=== PATIENT | female | born 1985 | race Caucasian/White ===

== ENCOUNTER 2017-02-17 10:10 | Emergency (ER) | payer OTHER ==
[~2017-02-17] VITALS: Ht 160 cm; Wt 58.2 kg
[~2017-02-17 10:10] MED LIST: TYLENOL
[2017-02-17] MEDS ORDERED: IPRATROPIUM BROMIDE 0.5 MG/2.5 ML NEB SOLUTION NEB ONE ×2 (10:15→10:45)
[2017-02-17] MEDS ORDERED: ALBUTEROL SULFATE 2.5 MG/0.5 ML NEB SOLUTION NEB ONE ×2 (10:15)
[2017-02-17] MEDS ORDERED: ALBUTEROL SULFATE 5 MG/ML 20 ML NEB SOLN [BULK] NEB ONE (10:45)
[2017-02-17] MEDS ORDERED: PredniSONE 20 MG TABLET PO ONE (11:30)
[2017-02-17 13:36] VITALS: BP 132/84
== END 2017-02-17 14:00 | disposition home or self-care (01) ==
LOC: EMS 10:11
DX: J45.909 Unspecified asthma, uncomplicated (principal)
CPT/HCPCS: 71020; 81025; 94060; 94640; 99285; J7512; J7611; J7613

== ENCOUNTER 2019-01-31 12:21 | Emergency (ER) | payer OTHER ==
[~2019-01-31] VITALS: Ht 160 cm; Wt 60.0 kg
[2019-01-31 14:42] VITALS: BP 127/66
== END 2019-01-31 14:46 | disposition home or self-care (01) ==
LOC: EMS 12:22
DX: L29.9 Pruritus, unspecified (principal)